=== PATIENT | male | born 1990 | race Caucasian/White ===

== ENCOUNTER 2019-01-15 15:49 | Emergency (ER) | payer OTHER ==
[~2019-01-15] VITALS: Ht 180.3 cm; Wt 81.8 kg
[2019-01-15] MEDS ORDERED: KETOROLAC TROMETHAMINE 10 MG TABLET PO ONE (16:45)
[2019-01-15] MEDS ORDERED: POVIDONE-IODINE 10% 15 ML SOLUTION UD TP ONE (16:45)
[2019-01-15] MEDS ORDERED: LIDOCAINE 1% 10 ML VIAL INJ ONE (16:45)
[2019-01-15 17:38] VITALS: BP 121/86
== END 2019-01-15 17:41 | disposition home or self-care (01) ==
LOC: EMS 15:51
DX: L03.011 Cellulitis of right finger (principal)
CPT/HCPCS: 10060; 87070; 96372; 99283; J0690; J3490

== ENCOUNTER 2019-01-19 23:56 | Emergency (ER) | payer OTHER ==
[~2019-01-19] VITALS: Ht 180.3 cm; Wt 81.8 kg
[2019-01-20 00:12] VITALS: BP 133/88
== END 2019-01-20 02:30 | disposition left against medical advice (07) ==
LOC: EMS 23:56
DX: M79.641 Pain in right hand (principal); M79.642 Pain in left hand; Z53.21 Procedure and treatment not carried out due to patient leaving prior to being seen by health care provider

== ENCOUNTER 2019-01-21 14:46 | Emergency (ER) | payer OTHER ==
[~2019-01-21] VITALS: Ht 180.3 cm; Wt 81.8 kg
[2019-01-21 15:03] VITALS: BP 159/94
== END 2019-01-21 17:45 | disposition home or self-care (01) ==
LOC: EMS 14:50
DX: S60.321A Blister (nonthermal) of right thumb, initial encounter (principal); S60.426A Blister (nonthermal) of right little finger, initial encounter; L03.011 Cellulitis of right finger; R03.0 Elevated blood-pressure reading, without diagnosis of hypertension; X58.XXXA Exposure to other specified factors, initial encounter; Y93.89 Activity, other specified; Y92.89 Other specified places as the place of occurrence of the external cause; Y99.8 Other external cause status
CPT/HCPCS: 10060

== ENCOUNTER 2019-06-06 04:22 | Emergency (ER) | payer SELFPAY | END 2019-06-06 04:35 | disposition left against medical advice (07) | LOC: EMS 04:22 | DX: M79.643 Pain in unspecified hand (principal); Z53.21 Procedure and treatment not carried out due to patient leaving prior to being seen by health care provider ==

== ENCOUNTER 2019-11-28 16:54 | Emergency (ER) | payer OTHER ==
[~2019-11-28] VITALS: Ht 180.3 cm; Wt 86.0 kg
[2019-11-28 16:56] VITALS: BP 131/90
[2019-11-28] MEDS ORDERED: PERTUSS(ACELL),DIPH,TET VAC/PF 0.5 ML VIAL IM ONE (18:15)
[2019-11-28] MEDS ORDERED: LIDOCAINE 1% 10 ML VIAL INJ ONE (18:15)
[2019-11-28] MEDS ORDERED: BACITRACIN 0.9 GM PACKET OINTMENT TP ONE (18:15)
== END 2019-11-28 19:02 | disposition home or self-care (01) ==
LOC: EMS 16:59
DX: S61.012A Laceration without foreign body of left thumb without damage to nail, initial encounter (principal); F17.290 Nicotine dependence, other tobacco product, uncomplicated; W45.8XXA Other foreign body or object entering through skin, initial encounter; Y93.89 Activity, other specified; Y92.89 Other specified places as the place of occurrence of the external cause; Y99.8 Other external cause status
CPT/HCPCS: 12002; 90471; 90715; 99283; 99406; J3490

== ENCOUNTER 2020-02-24 08:24 | Inpatient (IN) | payer MEDICAID, OTHER ==
[~2020-02-24] VITALS: Ht 172.7 cm; Wt 82.2 kg
[2020-02-24] MEDS ORDERED: DiphenhydrAMINE HCL 50 MG/ML VIAL IM ONE (09:45)
[2020-02-24] MEDS ORDERED: HALOPERIDOL LACTATE 5 MG/ML VIAL IM ONE (09:45)
[2020-02-24] MEDS ORDERED: LORazepam 2 MG/ML VIAL IM ONE (09:45)
[2020-02-24 12:04] LABS: HEMOGLOBIN 15.2 g/dL (13.5-17.5); MONOCYTES # (AUTO) 0.6 K/uL (0.1-1.0); NEUTROPHILS # (AUTO) 5.4 K/uL (1.8-7.7)
[2020-02-24 12:08] LABS: EOSINOPHILS % (AUTO) 0.4 % (1.0-6.0); LYMPHOCYTES # (AUTO) 1.4 K/uL (1.0-4.8); LYMPHOCYTES % (AUTO) 18.9 % (22.0-44.0); MEAN CORPUSCULAR HEMOGLOBIN 29.6 pg (26.0-34.0); MEAN CORPUSCULAR HGB CONC 33.1 G/dL (31.0-37.0); MEAN CORPUSCULAR VOLUME 89 fL (80-100); MONOCYTES % (AUTO) 8.5 % (2.0-9.0); NEUTROPHILS % (AUTO) 71.2 % (40.0-70.0); PLATELET COUNT (AUTO) 292 K/uL (150-450); RED BLOOD CELL COUNT(AUTO) 5.15 MIL/uL (4.50-5.90); RED CELL DISTRIBUTION WIDTH 13.4 % (11.5-14.5)
[2020-02-24 12:13] LABS: ANION GAP 8 mmol/L (8-16); CALCIUM, TOTAL 8.8 mg/dL (8.8-10.5); CARBON DIOXIDE 27 mmol/L (22-29); CHLORIDE 109 mmol/L (98-107); CREATININE 0.97 mg/dL (0.60-1.30); GLOMERULAR FILTR. RATE CALC > 60 mL/min (>60); GLUCOSE,RANDOM 89 mg/dL (70-110); POTASSIUM 4.1 mmol/L (3.5-5.1); SODIUM SERUM 144 mmol/L (136-145); UREA NITROGEN, BLOOD 14 mg/dL (7-18)
[2020-02-24 12:19] LABS: ALANINE AMINOTRANSFERASE 18 U/L (12-78); ALKALINE PHOSPHATASE 108 U/L (46-116); ASPARTATE AMINOTRANSFERASE 17 U/L (15-37); BILIRUBIN,TOTAL 0.3 mg/dL (0.1-1.0); TOTAL PROTEIN, SERUM 7.4 g/dL (6.4-8.2)
[2020-02-24] MEDS ORDERED: HALOPERIDOL 5 MG TABLET PO PRN (12:30)
[2020-02-24 14:42] VITALS: BP 129/75
[2020-02-24 16:03] VITALS: BP 132/70
[2020-02-24 21:00] VITALS: BP 128/74
[2020-02-25 05:21] VITALS: BP 120/71
[2020-02-25] MEDS ORDERED: ALBUTEROL SULFATE HFA 90 MCG/PUFF 8 GM INHALER IH PRN (07:30)
[2020-02-25] MEDS ORDERED: LOPERAMIDE HCL 2 MG CAPSULE PO PRN (07:30)
[2020-02-25] MEDS ORDERED: MAGNESIUM HYDROXIDE SUSPENSION 30 ML UDCUP PO PRN (07:30)
[2020-02-25] MEDS ORDERED: CloNIDine HCL 0.1 MG TABLET PO PRN (07:30)
[2020-02-25] MEDS ORDERED: OMEPRAZOLE 20 MG CAPSULE PO PRN (07:30)
[2020-02-25] MEDS ORDERED: MAG HYDROX/AL HYDROX/SIMETH ES 30 ML SUSPENSION UDCUP PO PRN (07:30)
[2020-02-25] MEDS ORDERED: ACETAMINOPHEN 325 MG TABLET PO PRN (07:30)
[2020-02-25] MEDS ORDERED: DOCUSATE SODIUM 100 MG CAPSULE PO PRN (07:30)
[2020-02-25] MEDS ORDERED: ONDANSETRON HCL 4 MG TABLET PO PRN (07:30)
[2020-02-25] MEDS ORDERED: IBUPROFEN 600 MG TABLET PO PRN (07:30)
[2020-02-25] MEDS ORDERED: BACITRACIN 28.4 GM OINTMENT TP PRN (07:30)
[2020-02-25] MEDS ORDERED: PETROLATUM,WHITE 28 GM JELLY TP PRN (07:30)
[2020-02-25] MEDS ORDERED: BENZOCAINE/MENTHOL LOZENGE MM PRN (07:30)
[2020-02-25 07:56] LABS: CHOL/HDL RATIO 2.9 (4.2-7.3)
[2020-02-25 08:12] VITALS: BP 106/63
[2020-02-25 16:10] VITALS: BP 108/64
[2020-02-25] MEDS: RisperiDONE 1 MG TABLET PO SCH (16:10)
[2020-02-25] MEDS: LORazepam 2 MG TABLET PO PRN (16:11)
[2020-02-25] MEDS: ZOLPIDEM TARTRATE 10 MG TABLET PO PRN (20:47)
[2020-02-26 05:23] VITALS: BP 105/63
[2020-02-26 08:03] VITALS: BP 114/66
[2020-02-26] MEDS: RisperiDONE 1 MG TABLET PO SCH ×2 (08:10→16:17)
[2020-02-26 09:15] LABS: AMPHET/METH SCREEN,URINE POSITIVE (NEGATIVE); BARBITURATE SCREEN, URINE NEGATIVE (NEGATIVE); BENZODIAZEPINES SCREEN,URINE NEGATIVE (NEGATIVE); CANNABINOID SCREEN,URINE NEGATIVE (NEGATIVE); COCAINE SCREEN,URINE NEGATIVE (NEGATIVE); METHADONE SCREEN, URINE NEGATIVE (NEGATIVE); OPIATE SCREEN,URINE NEGATIVE (NEGATIVE)
[2020-02-26 09:18] LABS: PHENCYCLIDINE SCREEN,URINE NEGATIVE (NEGATIVE)
[2020-02-26 16:00] VITALS: BP 112/64
[2020-02-27 00:20] VITALS: BP 112/73
[2020-02-27] MEDS: LORazepam 2 MG TABLET PO PRN ×2 (00:39→16:11)
[2020-02-27] MEDS: ZOLPIDEM TARTRATE 10 MG TABLET PO PRN ×2 (00:39→20:11)
[2020-02-27] MEDS: RisperiDONE 1 MG TABLET PO SCH ×2 (07:58→16:11)
[2020-02-27 08:44] VITALS: BP 118/65
[2020-02-27 16:12] VITALS: BP 121/82
[2020-02-28 05:51] VITALS: BP 116/76
[2020-02-28] MEDS: RisperiDONE 1 MG TABLET PO SCH ×2 (07:49→16:12)
[2020-02-28 08:05] VITALS: BP 117/66
[2020-02-28 16:40] VITALS: BP 106/69
[2020-02-29 05:28] VITALS: BP 113/74
[2020-02-29 08:01] VITALS: BP 121/77
[2020-02-29] MEDS: RisperiDONE 1 MG TABLET PO SCH ×2 (08:35→16:21)
[2020-02-29 16:09] VITALS: BP 130/75
[2020-03-01 04:55] VITALS: BP 123/63
[2020-03-01 08:11] VITALS: BP 118/70
[2020-03-01] MEDS: RisperiDONE 1 MG TABLET PO SCH ×2 (08:30→16:04)
[2020-03-01 16:01] VITALS: BP 124/70
[2020-03-02 05:33] VITALS: BP 141/79
[2020-03-02] MEDS: RisperiDONE 1 MG TABLET PO SCH ×2 (08:04→16:12)
[2020-03-02 08:19] VITALS: BP 136/81
[2020-03-02 16:01] VITALS: BP 113/68
[2020-03-02] MEDS: LORazepam 2 MG TABLET PO PRN (16:13)
[2020-03-03 05:29] VITALS: BP 115/56
[2020-03-03 08:08] VITALS: BP 109/68
[2020-03-03] MEDS: RisperiDONE 1 MG TABLET PO SCH ×2 (08:20→16:28)
[2020-03-03] MEDS: MULTIVITAMINS WITH MINERALS, THERAPEUTIC TABLET PO SCH (08:20)
[2020-03-03 15:52] VITALS: BP 134/75
[2020-03-03 16:01] VITALS: BP 134/75
[2020-03-03] MEDS: LORazepam 2 MG TABLET PO PRN (16:28)
[2020-03-04 01:11] VITALS: BP 129/78
[2020-03-04 01:20] VITALS: BP 101/63
[2020-03-04 08:02] VITALS: BP 121/78
[2020-03-04] MEDS: MULTIVITAMINS WITH MINERALS, THERAPEUTIC TABLET PO SCH (08:29)
[2020-03-04] MEDS: RisperiDONE 1 MG TABLET PO SCH ×2 (08:29→16:10)
[2020-03-04] MEDS: LORazepam 2 MG TABLET PO PRN (16:10)
[2020-03-04 16:54] VITALS: BP 107/69
[2020-03-04] MEDS: ZOLPIDEM TARTRATE 10 MG TABLET PO PRN (20:27)
[2020-03-05 00:28] VITALS: BP 112/71
[2020-03-05 08:07] VITALS: BP 111/60
[2020-03-05] MEDS: MULTIVITAMINS WITH MINERALS, THERAPEUTIC TABLET PO SCH (08:29)
[2020-03-05] MEDS: RisperiDONE 1 MG TABLET PO SCH (08:29)
[2020-03-05] MEDS ORDERED: RISP1TAB27 PO (12:58)
== END 2020-03-05 14:00 | disposition home or self-care (01) | DRG 885 ==
LOC: EMS 08:27 → B3A 13:52
PROVIDERS: ADMIT Psychiatry & Neurology Psychiatry; ATTEND Psychiatry & Neurology Psychiatry
DX: F20.0 Paranoid schizophrenia (principal); F41.9 Anxiety disorder, unspecified; K59.00 Constipation, unspecified; Z91.14 Patient's other noncompliance with medication regimen; F32.9 Major depressive disorder, single episode, unspecified; F17.210 Nicotine dependence, cigarettes, uncomplicated; Z59.0 Homelessness; F15.10 Other stimulant abuse, uncomplicated
CPT/HCPCS: 80307; 99291; G0480; J1200; J1630; J2060

== ENCOUNTER 2023-07-12 02:45 | Emergency (ER) | payer MEDICAID ==
[~2023-07-12] VITALS: Ht 177.8 cm; Wt 87.0 kg
[~2023-07-12 02:45] MED LIST: ARIP10TA38 PO; BUSP10TA23 PO; ESCI-8 PO; TRI115O TP
[2023-07-12 02:56] VITALS: BP 149/77; PULSE 77; RESP 17; TEMP 98.2
== END 2023-07-12 06:00 | disposition home or self-care (01) ==
LOC: EMS 02:46
DX: F41.9 Anxiety disorder, unspecified (principal); F32.A Depression, unspecified; F20.9 Schizophrenia, unspecified; F17.210 Nicotine dependence, cigarettes, uncomplicated; F15.90 Other stimulant use, unspecified, uncomplicated; Z98.890 Other specified postprocedural states
CPT/HCPCS: 94644; 99285; Z7502